=== PATIENT | male | born 1995 | race African-American/Black ===

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

== ENCOUNTER 2019-04-30 11:34 | Emergency (ER) | payer OTHER ==
[~2019-04-30] VITALS: Ht 182.9 cm; Wt 86.4 kg
[2019-04-30] MEDS ORDERED: METHOCARBAMOL 500 MG TABLET PO ONE (13:45)
[2019-04-30] MEDS ORDERED: LIDOCAINE 5% TRANSDERMAL PATCH TD ONE (13:45)
[2019-04-30] MEDS ORDERED: IBUPROFEN 800 MG TABLET PO ONE (13:45)
[2019-04-30 14:40] VITALS: BP 122/81
== END 2019-04-30 15:12 | disposition home or self-care (01) ==
LOC: EMS 11:36
DX: S13.4XXA Sprain of ligaments of cervical spine, initial encounter (principal); M54.6 Pain in thoracic spine; R03.0 Elevated blood-pressure reading, without diagnosis of hypertension; V89.2XXA Person injured in unspecified motor-vehicle accident, traffic, initial encounter; Y93.89 Activity, other specified; Y92.488 Other paved roadways as the place of occurrence of the external cause; Y99.8 Other external cause status
CPT/HCPCS: 72040